=== PATIENT | female | born 1980 ===

== ENCOUNTER 2023-03-07 12:43 | Outpatient (AMB) | payer MEDICAID, SELFPAY ==
--- NOTE | 2023-03-07 12:53 | MHC.OFFVIS ---
Intake Intake Visit Reasons: nephrolithiasis Intake Note: NEW Patient presents today to established treatment for Nephrolithiasis: Meds- None Allergies to Antibiotic- No Known Allergies Blood Thinner- None Courtroom Deputy Or Calendar Clerk Required: No Accompanied by: Significant Other Allergies oxycodone [OXYCODONE] Allergy (Mild, Verified 03/07/23 13:08) rash codiene Allergy (Unknown, Uncoded 03/07/23 13:08) Unknown Medication List - Last Reconciled 03/07/23 by Edyta Mena MD ciprofloxacin HCl 500 mg PO BID cranberry extract 425 mg PO BID desogestrel-ethinyl estradiol 0.15-0.03 mg (Isibloom) 1 tab PO DAILY HPI HPI Comments History of Present Illness Details Kirk is a 42 year old female who is here with her for evaluation for right kidney pain. h/o kidney stones. She states she has had pain for about 2 months, she states she gets UTI's frequently, and was treated with abx by her PCP about one month ago. Past Medical history - kidney stones treated by Dr. Salcido --states she had 3 ESWLS in the past. She was last seen about 4 years ago denies any other prior surgeries. Denies hematuria, or dysuria, denies history of nicotine use. UA-- nitrite positive, 3+blood, leuk trace Plan: Renal US urine c/s, empirically start cipro 500 mg bid for 10 day cranberry supplements daily Review of Systems Const All systems reviewed & are unremarkable except as noted in HPI and below Reports no additional complaints Eyes Reports no additional complaints ENT Reports no additional complaints Card Denies dyspnea Resp Denies cough and Denies dyspnea GI Reports no additional complaints Reports no additional complaints Musc Reports no additional complaints Skin/Breast Denies rash and Denies unusual bruising Neuro Reports no additional complaints Psych Reports no additional complaints Endo Reports no additional complaints Kevin/Lymph Reports no additional complaints Aller/Immun Reports no additional complaints Physical Exam Const General: cooperative, healthy appearing and no acute distress Orientation/consciousness: patient oriented x3 HEENT Head: Yes normal to inspection, Yes normocephalic and Yes atraumatic Eyes Conjunctivae: conjunctivae normal Neck Neck: Yes normal visual inspection and Yes trachea midline Chest Chest palpation & inspection: normal inspection of the chest Resp Effort & Inspection: normal respiratory effort Cardio Rate: regular rate GI Inspection: Yes normal to inspection General: Yes CVA tenderness on the right Back/Spine/Pelvis Back: CVA tenderness Skin General skin exam: no rashes or lesions noted Neuro General: patient oriented x3 Extrem General: No edema Psych Appearance: grossly normal Results AMB Urinalysis, Automated UA Leukoctes 15 Brie/uL Last Edit by LOI Devi on 03/07/23 13:11 UA Nitrite Positive Last Edit by OLI Devi on 03/07/23 13:11 UA Urobilinogen 0.2 mg/dL Last Edit by OLI Devi on 03/07/23 13:11 UA Protein 15 mg/dL Last Edit by OLI Devi on 03/07/23 13:11 UA pH 6.0 Last Edit by OLI Devi on 03/07/23 13:11 UA Blood 200 Thomas/uL Last Edit by OLI Devi on 03/07/23 13:11 3+ Sacha Ernandez 03/07/23 13:11 UA Specific [place] 1.030 Last Edit by OLI Devi on 03/07/23 13:11 UA Ketone Negative Last Edit by OLI Devi on 03/07/23 13:11 UA Bilirubin 0 mg/dL Last Edit by OLI Devi on 03/07/23 13:11 UA Glucose 0 mg/dL Last Edit by Sacha Ernandez [place] on 03/07/23 13:11 Assessment & Plan Assessment & Plan (1) Flank pain: Code(s): R10.9 - Unspecified abdominal pain (2) History of kidney stones: Code(s): Z87.442 - Personal history of urinary calculi Plan Plan: Renal US urine c/s, empirically start cipro 500 mg bid for 10 day cranberry supplements daily Orders: Orders AMB Urinalysis Automated Today Z13.9 - Encounter for screening, unspecified US retroperitoneal comp Today R10.9 - Unspecified abdominal pain, Z87.442 - Personal history of urinary calculi Medications: New ciprofloxacin HCl 500 mg PO BID 20 tabs 0RF cranberry extract administer with meals 425 mg PO BID 60 caps 5RF Patient Instructions: The patient had an opportunity to ask questions regarding treatment plan. All questions were answered. Laboratory studies and physical exam results were discussed and reviewed in detail. No major barriers to understanding were identified. The patient expressed understanding and agreement with the above treatment plan. The patient is aware they should contact our office by phone for worsening of their current condition or the appearance of new symptoms. Compliance is encouraged with any medications and followup testing that is ordered. It is a privilege to be allowed the opportunity to participate in the urologic care of your patient. If you have any questions or concerns regarding treatment for the above conditions please do not hesitate to contact me. The office telephone contact is [phone]. This note is constructed in part using voice recognition software. While every effort has been made to ensure accuracy truckload checker errors may have been included. Yours sincerely, Edyta Mena MD Coding Level of Care Code New Pt Level 4 (45743) Diagnoses Flank pain R10.9 History of kidney stones Z87.442
== END 2023-03-07 13:28 | disposition home or self-care (01) ==
PROVIDERS: PCP Internal Medicine; Referring Provider Internal Medicine; Visit Provider Urology
DX: R10.9 Unspecified abdominal pain (principal); Z87.442 Personal history of urinary calculi; Z13.9 Encounter for screening, unspecified
CPT/HCPCS: 99204

== ENCOUNTER 2023-03-07 12:43 | Outpatient (REF) | payer MEDICAID, SELFPAY | END 2023-03-07 12:44 | disposition home or self-care (01) | LOC: HO.LAB 12:43 | PROVIDERS: PCP Internal Medicine; Visit Provider Urology | DX: N39.0 Urinary tract infection, site not specified (principal); N20.0 Calculus of kidney; R10.9 Unspecified abdominal pain; Z87.442 Personal history of urinary calculi; Z79.899 Other long term (current) drug therapy | CPT/HCPCS: 81003; 87086; 99202 ==

== ENCOUNTER 2023-04-03 12:58 | Outpatient (REF) | payer MEDICAID, SELFPAY ==
--- NOTE | ~2023-04-03 | US_ITS ---
EXAMINATION: US RETROPERITONEAL COMPLETE (RENAL) CLINICAL INFORMATION: Unspecified abdominal pain. COMPARISON: Renal ultrasound 03/30/2018 and 10/23/2017 TECHNIQUE: Real-time imaging of the kidneys and bladder. FINDINGS: RIGHT KIDNEY: 9.7 x 3.1 x 4.7 cm (SAG x AP x TRV). The kidney is normal in size, contour, and echogenicity. Renal cortical thickness is normal. No calculi or focal parenchymal lesions. No hydronephrosis. LEFT KIDNEY: 10.5 x 4.2 x 5.0 cm (SAG x AP x TRV). The kidney is normal in size, contour, and echogenicity. Renal cortical thickness is normal. No calculi or focal parenchymal lesions. No hydronephrosis. BLADDER: Well distended and normal. Bilateral ureteral jets are demonstrated. Prevoid bladder volume is 125 mL. Postvoid bladder volume is 2.0 mL. US/US retroperitoneal comp IMPRESSION: Normal renal and bladder ultrasound.
== END 2023-04-03 12:59 | disposition home or self-care (01) ==
LOC: HO.US 12:58
PROVIDERS: PCP Internal Medicine; Visit Provider Urology
DX: R10.9 Unspecified abdominal pain (principal); Z87.442 Personal history of urinary calculi
CPT/HCPCS: 76770

== ENCOUNTER 2023-04-11 14:07 | Outpatient (REF) | payer MEDICAID, SELFPAY ==
[2023-04-11 16:57] LABS: Urine Cytology See Pathology rpt
== END 2023-04-11 14:08 | disposition home or self-care (01) ==
LOC: HO.LAB 14:07
PROVIDERS: PCP Internal Medicine; Visit Provider Urology
DX: R10.9 Unspecified abdominal pain (principal); N39.0 Urinary tract infection, site not specified; R31.9 Hematuria, unspecified; Z87.442 Personal history of urinary calculi; Z87.448 Personal history of other diseases of urinary system
CPT/HCPCS: 81003; 87086; 88112; 99212

== ENCOUNTER 2023-04-11 14:07 | Outpatient (AMB) | payer MEDICAID, SELFPAY ==
--- NOTE | 2023-04-11 14:50 | A.OFFVIS_ITS ---
Intake Intake Visit Reasons: 1m/US Intake Note: Patient presents today for a follow-up for Nephrolithiasis US Results: Meds- None Allergies to Antibiotic- No Known Allergies Blood Thinner- None Manager Of Construction Required: No Accompanied by: Significant Other Allergies oxycodone [OXYCODONE] Allergy (Mild, Verified 04/11/23 14:51) rash codiene Allergy (Unknown, Uncoded 04/11/23 14:51) Unknown HPI HPI Comments History of Present Illness Details Kirk is a 42 year old female who is here with her for evaluation for right kidney pain. h/o kidney stones. She was initially evaluated 03/07/2023 with complaints of kidney pain for about 2 months, and she stated she gets UTI's frequently. Urinalysis on 03/07/2023, was nitrite positive; she was empirically treated with a 10 day course of Cipro. Urine culture came back mixed bacteria. Past Medical history - kidney stones treated by Dr. Salcido --states she had 3 ESWLS in the past. She was last seen about 4 years ago denies any other prior surgeries. 04/11/2023--she states that for the last f ew days she has been having dysuria and thinks she has another UTI. The right flank pain has not improved. Patient is using again a cranberry juice but did not get the cranberry supplements. UA-- 1+blood, leuk trace I have reviewed 04/03/23--renal ultrasound results which are within normal limits no stones visualized. Plan: Repeat course of cipro 500 mg bid for 5 days. cranberry extract prescribed Further evaluation with CT imaging Urine for cytology and repeat urine culture Nitrofurantoin 50 mg antibiotic prophylaxis to use after sexual activity Review of Systems Const All systems reviewed & are unremarkable except as noted in HPI and below Reports no additional complaints Eyes Reports no additional complaints ENT Reports no additional complaints Card Denies dyspnea Resp Denies cough and Denies dyspnea GI Reports no additional complaints Reports no additional complaints Musc Reports no additional complaints Skin/Breast Denies rash and Denies unusual bruising Neuro Reports no additional complaints Psych Reports no additional complaints Endo Reports no additional complaints Kevin/Lymph Reports no additional complaints Aller/Immun Reports no additional complaints Results AMB Urinalysis, Automated UA Leukoctes 15 Brie/uL Last Edit by OLI Devi on 04/11/23 14:52 UA Nitrite Negative Last Edit by OLI Devi on 04/11/23 14:52 UA Urobilinogen 0.2 mg/dL Last Edit by Sacha Ernandez [place] on 04/11/23 14:5 2 UA Protein 15 mg/dL Last Edit by Sacha Ernandez [place] on 04/11/23 14:52 UA pH 6.0 Last Edit by Sacha Ernandez [place] on 04/11/23 14:52 UA Blood 25 Thomas/uL Last Edit by Scaha Ernandez [place] on 04/11/23 14:52 1+ Sacha Ernandez 04/11/23 14:52 UA Specific [place] 1.020 Last Edit by Sacha Ernandez [place] on 04/11/23 14: 52 UA Ketone Negative Last Edit by OLI Devi on 04/11/23 14:52 UA Bilirubin 0 mg/dL Last Edit by Sacha Ernandez [place] on 04/11/23 14:52 UA Glucose 0 mg/dL Last Edit by Sacha Ernandez [place] on 04/11/23 14:52 Results Reviewed Results Reviewed: Laboratory Last Values Urine pH (Auto) 6.0 04/11/23 14:51 Specific [place] (Auto) 1.020 04/11/23 14:51 Urine Protein (Auto) 15 mg/dL 04/11/23 14:51 Glucose (UA)(Auto) 0 mg/dL 04/11/23 14:51 Urine Ketones (Auto) Negative 04/11/23 14:51 Urine Blood (Auto) 25 Thomas/uL 04/11/23 14:51 Urine Nitrite (Auto) Negative 04/11/23 14:51 Urine Bilirubin (Auto) 0 mg/dL 04/11/23 14:51 Urine Urobilinogen (Auto) 0.2 mg/dL 04/11/23 14:51 Leukocyte Esterase (Auto) 15 Brie/uL 04/11/23 14:51 Date of Service: 04/03/23 EXAMINATION: US RETROPERITONEAL COMPLETE (RENAL) CLINICAL INFORMATION: Unspecified abdominal pain. COMPARISON: Renal ultrasound 03/30/2018 and 10/23/2017 TECHNIQUE: Real-time imaging of the kidneys and bladder. FINDINGS: RIGHT KIDNEY: 9.7 x 3.1 x 4.7 cm (SAG x AP x TRV). The kidney is normal in size, contour, and echogenicity. Renal cortical thickness is normal. No calculi or focal parenchymal lesions. No hydronephrosis. LEFT KIDNEY: 10.5 x 4.2 x 5.0 cm (SAG x AP x TRV). The kidney is normal in size, contour, and echogenicity. Renal cortical thickness is normal. No calculi or focal parenchymal lesions. No hydronephrosis. BLADDER: Well distended and normal. Bilateral ureteral jets are demonstrated. Prevoid bladder volume is 125 mL. Postvoid bladder volume is 2.0 mL. IMPRESSION: Normal renal and bladder ultrasound. Collected: 03/07/23 Status: COMP Req#: [id number] Received: 03/07/23 Source: [facility] Sp Desc: Urine dutton Subm Dr: Edyta Mena MD Ordered: Urine Culture Procedure Result Verified Urine Culture Final 03/09/23 Report Result 50,000 to 100,000 cfu/ml Mixed bacterial connor characteristic of urogenital contamination. Assessment & Plan Assessment & Plan (1) H/O pyelonephritis: Code(s): Z87.448 - Personal history of other diseases of urinary system (2) Right flank pain: Code(s): R10.9 - Unspecified abdominal pain (3) History of renal calculi: Code(s): Z87.442 - Personal history of urinary calculi (4) Hematuria: Code(s): R31.9 - Hematuria, unspecified (5) Recurrent UTI: Code(s): N39.0 - Urinary tract infection, site not specified Plan Repeat course of cipro 500 mg bid for 5 days. cranberry extract prescribed Further evaluation with CT imaging Urine for cytology and repeat urine culture Nitrofurantoin 50 mg antibiotic prophylaxis to use after sexual activity Orders: Orders AMB Urinalysis Automated Today Z13.9 - Encounter for screening, unspecified Blood Urea Nitrogen Today N39.0 - Urinary tract infection, site not specified, Z87.448 - Personal history of other diseases of urinary system CT abdomen pelvis wo/w IV con Today N39.0 - Urinary tract infection, site not specified, R10.9 - Unspecified abdominal pain, R31.9 - Hematuria, unspecified, Z87.442 - Personal history of urinary calculi, Z87.448 - Personal history of other diseases of urinary system Creatinine Today N39.0 - Urinary tract infection, site not specified, Z87.448 - Personal history of other diseases of urinary system Medications: New nitrofurantoin macrocrystal 50 mg orally use after sexual activity; administer with a meal/food 30 caps 1RF Refilled ciprofloxacin HCl 500 mg PO BID 10 tabs 0RF cranberry extract administer with meals 425 mg PO BID 60 caps 5RF Patient Instructions: The patient had an opportunity to ask questions regarding treatment plan. All questions were answered. Imaging, Laboratory studies and physical exam results were discussed and reviewed in detail. No major barriers to understanding were identified. The patient expressed understanding and agreement with the above treatment plan. The patient is aware they should contact our office by phone for worsening of their current condition or the appearance of new symptoms. Compliance is encouraged with any medications and followup testing that is ordered. It is a privilege to be allowed the opportunity to participate in the urologic care of your patient. If you have any questions or concerns regarding treatment for the above conditions please do not hesitate to contact me. The office telephone contact is [phone]. This note is constructed in part using voice recognition software. While every effort has been made to ensure accuracy cdl instructor errors may have been included. Yours sincerely, Edyta Mena MD Coding Level of Care Code Est Pt Level 4 (15296) Diagnoses H/O pyelonephritis Z87.448 Right flank pain R10.9 History of renal calculi Z87.442 Hematuria R31.9 Recurrent UTI N39.0
== END 2023-04-11 15:51 | disposition home or self-care (01) ==
PROVIDERS: PCP Internal Medicine; Visit Provider Urology
DX: Z87.448 Personal history of other diseases of urinary system (principal); R10.9 Unspecified abdominal pain; Z87.442 Personal history of urinary calculi; R31.9 Hematuria, unspecified; N39.0 Urinary tract infection, site not specified; Z13.9 Encounter for screening, unspecified
CPT/HCPCS: 99214

== ENCOUNTER 2023-06-14 09:12 | Outpatient (AMB) | payer MEDICAID, SELFPAY ==
--- NOTE | 2023-06-14 09:40 | MHC.OFFVIS ---
Intake Visit Reasons: possible cysto/CT/labs Intake Note: Patient presents today for a CYSTOSCOPY Procedure: Patient declined Cysto Meds: Nitro, Cipro & Cranberry Allergies to Antibiotic: No Known Allergies Blood Thinner: None Center Hole Reamer Required: No Accompanied by: Self / Same As Patient Allergies oxycodone [OXYCODONE] Allergy (Mild, Verified 06/14/23 09:42) rash codiene Allergy (Unknown, Uncoded 06/14/23 09:42) Unknown HPI Comments Details: 06/14/23--Kirk is a 42 year old female who is here with her for evaluation for right kidney pain. h/o kidney stones. She was initially evaluated 03/07/2023 with complaints of kidney pain for about 2 months, and she stated she gets UTI's frequently. Past Medical history - kidney stones treated by Dr. Salcido --states she had 3 ESWLS in the past. She was last seen about 4 years ago denies any other prior surgeries. Urine cytology sent on 04/11/23 was negative for malignant cells. Reviewed CT Abd/pelvis wo IV contrast, no calcifications reported. I discussed findings with patient and her . 04/11/2023--she states that for the last few days she has been having dysuria and thinks she has another UTI. The right flank pain has not improved. Patient is using again a cranberry juice but did not get the cranberry supplements. Discussed repeat course of cipro 500 mg bid for 5 days. cranberry extract prescribed. Further evaluation with CT imaging. Urine for cytology and repeat urine culture. Nitrofurantoin 50 mg antibiotic prophylaxis to use after sexual activity UA-- 1+blood, leuk trace I have reviewed 04/03/23--renal ultrasound results which are within normal limits no stones visualized. Urinalysis on 03/07/2023, was nitrite positive; she was empirically treated with a 10 day course of Cipro. Urine culture came back mixed bacteria. Review of Systems Const All systems reviewed & are unremarkable except as noted in HPI and below Reports no additional complaints Eyes Reports no additional complaints ENT Reports no additional complaints Card Reports no additional complaints Resp Reports no additional complaints GI Reports no additional complaints Reports as per HPI Musc Reports no additional complaints Skin/Breast Reports system reviewed and no additional complaints, except as documented Neuro Reports no additional complaints Psych Reports no additional complaints Endo Reports no additional complaints Kevin/Lymph Reports no additional complaints Aller/Immun Reports no additional complaints Results AMB Urinalysis, Automated UA Leukoctes 15 Brie/uL Last Edit by OLI Devi on 06/14/23 10:20 UA Nitrite Negative Last Edit by Sacha Ernandez [facility] on 06/14/23 10:20 UA Urobilinogen 0.2 mg/dL Last Edit by Sacha Ernandez [place] on 06/14/23 10:20 UA Protein 30 mg/dL Last Edit by Sacha Ernandez [facility] on 06/14/23 10:20 1+ Sacha Ernandez 06/14/23 10:20 UA pH 5.5 Last Edit by Sacha Ernandez [place] on 06/14/23 10:20 UA Blood 200 Thomas/uL Last Edit by Sacha Ernandez [facility] on 06/14/23 10:20 3+ Sacha Ernandez 06/14/23 10:20 UA Specific [place] 1.025 Last Edit by Sacha Ernandez [place] on 06/14/23 10:20 UA Ketone Negative Last Edit by Sacha Ernnadez [facility] on 06/14/23 10:20 UA Bilirubin 0 mg/dL Last Edit by Sacha Ernandez [facility] on 06/14/23 10:20 UA Glucose 0 mg/dL Last Edit by Sacha Ernandez [facility] on 06/14/23 10:20 Results Reviewed Results Reviewed: Laboratory Last Values Urine pH (Auto) 5.5 06/14/23 10:19 Specific [place] (Auto) 1.025 06/14/23 10:19 Urine Protein (Auto) 30 mg/dL 06/14/23 10:19 Glucose (UA)(Auto) 0 mg/dL 06/14/23 10:19 Urine Ketones (Auto) Negative 06/14/23 10:19 Urine Blood (Auto) 200 Thomas/uL 06/14/23 10:19 Urine Nitrite (Auto) Negative 06/14/23 10:19 Urine Bilirubin (Auto) 0 mg/dL 06/14/23 10:19 Urine Urobilinogen (Auto) 0.2 mg/dL 06/14/23 10:19 Leukocyte Esterase (Auto) 15 Brie/uL 06/14/23 10:19 Collected: 04/11/23 Location: .LAB Received: 04/13/23 Diagnosis Urine: Negative for high-grade urothelial carcinoma. COMMENT: Examination of a monolayer preparation slide shows many benign squamous cells, occasional benign urothelial cells, and occasional inflammatory cells and red blood cells. Clinical History Hematuria Material Received Urine Gross Description 7 cc cloudy yellow fluid Date of Service: 04/03/23 EXAMINATION: US RETROPERITONEAL COMPLETE (RENAL) CLINICAL INFORMATION: Unspecified abdominal pain. COMPARISON: Renal ultrasound 03/30/2018 and 10/23/2017 TECHNIQUE: Real-time imaging of the kidneys and bladder. FINDINGS: RIGHT KIDNEY: 9.7 x 3.1 x 4.7 cm (SAG x AP x TRV). The kidney is normal in size, contour, and echogenicity. Renal cortical thickness is normal. No calculi or focal parenchymal lesions. No hydronephrosis. LEFT KIDNEY: 10.5 x 4.2 x 5.0 cm (SAG x AP x TRV). The kidney is normal in size, contour, and echogenicity. Renal cortical thickness is normal. No calculi or focal parenchymal lesions. No hydronephrosis. BLADDER: Well distended and normal. Bilateral ureteral jets are demonstrated. Prevoid bladder volume is 125 mL. Postvoid bladder volume is 2.0 mL. IMPRESSION: Normal renal and bladder ultrasound. Collected: 03/07/23-1243 Status: COMP Req#: [id number] Received: 03/07/23-193 Source: [facility] Sp Desc: Urine dutton Subm Dr: Edyta Mena MD Ordered: Urine Culture Procedure Result Verified Urine Culture Final 03/09/2309 Report Result 50,000 to 100,000 cfu/ml Mixed bacterial connor characteristic of urogenital contamination. Assessment & Plan Assessment & Plan (1) H/O pyelonephritis: Code(s): Z87.448 - Personal history of other diseases of urinary system Category: Medical (2) Right flank pain: Code(s): R10.9 - Unspecified abdominal pain Category: Medical (3) History of renal calculi: Code(s): Z87.442 - Personal history of urinary calculi Category: Medical (4) Hematuria: Code(s): R31.9 - Hematuria, unspecified Category: Medical (5) Recurrent UTI: Code(s): N39.0 - Urinary tract infection, site not specified Category: Medical Plan cranberry supplements Nitrofurantoin 50 mg antibiotic prophylaxis to use after sexual activity. Consider cysto on fu pending continued irritative voiding symptoms. Orders: Orders AMB Urinalysis Automated 06/14/23 Z13.9 - Encounter for screening, unspecified Patient Instructions: The patient had an opportunity to ask questions regarding treatment plan. The patient expressed understanding and agreement with the above treatment plan. The patient is aware they should contact our office by phone for worsening of their current condition or the appearance of new symptoms. Compliance is encouraged with any medications and followup testing that is ordered. It is a privilege to be allowed the opportunity to participate in the urologic care of your patient. If you have any questions or concerns regarding treatment for the above conditions please do not hesitate to contact me. The office telephone contact is [phone]. This note is constructed in part using voice recognition software. While every effort has been made to ensure accuracy talent development manager errors may have been included. Yours sincerely, Edyta Mena MD Coding Level of Care Code Est Pt Level 4 (65911) Diagnoses H/O pyelonephritis Z87.448 Right flank pain R10.9 History of renal calculi Z87.442 Hematuria R31.9 Recurrent UTI N39.0
== END 2023-06-14 10:17 | disposition home or self-care (01) ==
PROVIDERS: PCP Internal Medicine; Visit Provider Urology
DX: Z87.448 Personal history of other diseases of urinary system (principal); R10.9 Unspecified abdominal pain; Z87.442 Personal history of urinary calculi; R31.9 Hematuria, unspecified; N39.0 Urinary tract infection, site not specified
CPT/HCPCS: 99214

== ENCOUNTER → 2023-06-14 09:12 | Outpatient (BNVA) | payer MEDICAID, SELFPAY | PROVIDERS: PCP Internal Medicine; Visit Provider Urology | DX: R31.9 Hematuria, unspecified (principal); N39.0 Urinary tract infection, site not specified; R10.9 Unspecified abdominal pain; Z87.448 Personal history of other diseases of urinary system; Z87.442 Personal history of urinary calculi | CPT/HCPCS: 81003; 99212 ==

== ENCOUNTER 2023-10-24 13:15 | Outpatient (AMB) | payer MEDICAID, SELFPAY ==
--- NOTE | 2023-10-24 13:26 | A.OFFVIS_ITS ---
Intake Visit Reasons: possible cysto/follow up Intake Note: Pt presents to the office today for a follow up/ cysto. Cystoscope: LOT:[id number] EXP:04/19/26 Allergies oxycodone [OXYCODONE] Allergy (Mild, Verified 10/24/23 13:37) rash codiene Allergy (Unknown, Uncoded 10/24/23 13:37) Unknown Medication List - Last Reconciled 10/24/23 by Edyta Mena MD solifenacin (Vesicare) 10 mg PO BEDTIME HPI Comments Details: 10/24/23--Margaret is a 42 year old female who is followed for history of kidney stones and persistent microscopic hematuria. She is here for follow-up and cystoscopy. She denies dysuria. She complains of urinary frequency especially at nighttime. Will trial VESIcare 10 mg at bedtime. Cystoscopy findings: prominent vasculature, mild trabeculations, no suspicious bladder lesions visualized. Continue to monitor kidneys. Renal ultrasound in 10 months. Review of chart: 06/14/23--Kirk is a 42 year old female who is here with her for evaluation for right kidney pain. h/o kidney stones. She was initially evaluated 03/07/2023 with complaints of kidney pain for about 2 months, and she stated she gets UTI's frequently. Past Medical history - kidney stones treated by Dr. Salcido --states she had 3 ESWLS in the past. She was last seen about 4 years ago denies any other prior surgeries. Urine cytology sent on 04/11/23 was negative for malignant cells. Reviewed CT Abd/pelvis wo IV contrast, no calcifications reported. I discussed findings with patient and her . 04/11/2023--she states that for the last few days she has been having dysuria and thinks she has another UTI. The right flank pain has not improved. Patient is using again a cranberry juice but did not get the cranberry supplements. Disc ussed repeat course of cipro 500 mg bid for 5 days. cranberry extract prescribed. Further evaluation with CT imaging. Urine for cytology and repeat urine culture. Nitrofurantoin 50 mg antibiotic prophylaxis to use after sexual activity UA-- 1+blood, leuk trace I have reviewed 04/03/23--renal ultrasound results which are within normal limits no stones visualized. Urinalysis on 03/07/2023, was nitrite positive; she was empirically treated with a 10 day course of Cipro. Urine culture came back mixed bacteria. Review of Systems Const All systems reviewed & are unremarkable except as noted in HPI and below Reports no additional complaints Eyes Reports no additional complaints ENT Reports no additional complaints Card Reports no additional complaints Resp Reports no additional complaints GI Reports no additional complaints Reports as per HPI Musc Reports no additional complaints Skin/Breast Reports system reviewed and no additional complaints, except as documented Neuro Reports no additional complaints Psych Reports no additional complaints Endo Reports no additional complaints Kevin/Lymph Reports no additional complaints Aller/Immun Reports no additional complaints Office Procedures Cystoscopy Consent Discussed risk and benefit or proposed procedure with the patient. Information consent for procedure given to the patient. Discussed technical aspects, risks, benefits and alternatives in full. Addressed all of the patient's questions and concerns regarding the procedure. The patient demonstrated knowledge and understanding. They wish to proceed with this procedure. Preparation The patient was prepped in the usual manner. A gold cutter was present and in the room. Genitalia was prepped with betadine solution in a sterile manner. Lidocaine Jelly 2% was placed into the urethra and 16Fr flexible Olympus cystoscope was inserted into the meatus after adequate lubrication. Procedure Time out per protocol performed. Bladder Inspection Bladder Inspection: The bladder was inspected in its entirety with utilization retroflexion displaying: Tumor(s): no suspicious bladder lesions visualized Trabeculation: mild Mucosal Erthema: mild Orifices: normal shape and position Urethra: normal Cystoscopy findings: prominent vasculature, mild trabeculations, no suspicious bladder lesions visualized [id number] DISPOSABLE SCOPE URO-G FLEXIBLE SCOPE Procedure code (CPT) selection complete Office Meds lidocaine HCl 2 % mucosal jelly in applicator Performing Provider: Edyta Mena MD Performing Location[facility] [place] [facility] Administered by: Isac Nicole LPN on 10/24/23 14:30 Dose Route Admin Location Dispensed Lot Number Expiration Date [facility] Health Insurance Agent 10 mL intra-urethral 10 mL naproxen 500 mg tablet Performing Provider: Edyta Mena MD Performing Location: [facility] [place] [facility] Administered by: Isac Nicole LPN on 10/24/23 14:30 Dose Route Admin Location Dispensed Lot Number Expiration Date [facility] Health Insurance Agent 500 mg PO 1 tab ciprofloxacin HCl 500 mg tablet Performing Provider: Edyta Mena MD Performing Location: [facility] [place] [facility] Administered by: Isac Nicole LPN on 10/24/23 14:30 Dose Route Admin Location Dispensed Lot Number Expiration Date [facility] Health Insurance Agent 500 mg PO 1 tab Results AMB Urinalysis, Automated UA Leukoctes 500 Brie/uL Last Edit by Anjana Potts CMA on 10/24/23 13:39 UA Nitrite Negative Last Edit by Anjana Potts CMA on 10/24/23 13:39 UA Urobilinogen 0.2 mg/dL Last Edit by Anjana Potts CMA on 10/24/23 13:39 UA Protein 15 mg/dL Last Edit by Anjana Potts CMA on 10/24/23 13:39 UA pH 6.0 Last Edit by Anjana Potts CMA on 10/24/23 13:39 UA Blood 80 Thomas/uL Last Edit by Anjana Potts CMA on 10/24/23 13:39 UA Specific [place] 1.020 Last Edit by Anjana Potts CMA on 10/24/23 13:39 UA Ketone Negative Last Edit by Anjana Potts CMA on 10/24/23 13:39 UA Bilirubin 0 mg/dL Last Edit by Anjana Potts CMA on 10/24/23 13:39 UA Glucose 0 mg/dL Last Edit by Anjana Potts CMA on 10/24/23 13:39 Results Reviewed Results Reviewed: Laboratory Last Values Urine pH (Auto) 6.0 10/24/23 13:37 Specific [place] (Auto) 1.020 10/24/23 13:37 Urine Protein (Auto) 15 mg/dL 10/24/23 13:37 Glucose (UA)(Auto) 0 mg/dL 10/24/23 13:37 Urine Ketones (Auto) Negative 10/24/23 13:37 Urine Blood (Auto) 80 Thomas/uL 10/24/23 13:37 Urine Nitrite (Auto) Negative 10/24/23 13:37 Urine Bilirubin (Auto) 0 mg/dL 10/24/23 13:37 Urine Urobilinogen (Auto) 0.2 mg/dL 10/24/23 13:37 Leukocyte Esterase (Auto) 500 Brie/uL 10/24/23 13:37 Collected: 02/07/24 Location: [facility] Received: 04/13/23 Diagnosis Urine: Negative for high-grade urothelial carcinoma. COMMENT: Examination of a monolayer preparation slide shows many benign squamous cells, occasional benign urothelial cells, and occasional inflammatory cells and red blood cells. Clinical History Hematuria Material Received Urine Gross Description 7 cc cloudy yellow fluid Date of Service: 04/03/23 EXAMINATION: US RETROPERITONEAL COMPLETE (RENAL) CLINICAL INFORMATION: Unspecified abdominal pain. COMPARISON: Renal ultrasound 03/30/2018 and 10/23/2017 TECHNIQUE: Real-time imaging of the kidneys and bladder. FINDINGS: RIGHT KIDNEY: 9.7 x 3.1 x 4.7 cm (SAG x AP x TRV). The kidney is normal in size, contour, and echogenicity. Renal cortical thickness is normal. No calculi or focal parenchymal lesions. No hydronephrosis. LEFT KIDNEY: 10.5 x 4.2 x 5.0 cm (SAG x AP x TRV). The kidney is normal in size, contour, and echogenicity. Renal cortical thickness is normal. No calculi or focal parenchymal lesions. No hydronephrosis. BLADDER: Well distended and normal. Bilateral ureteral jets are demonstrated. Prevoid bladder volume is 125 mL. Postvoid bladder volume is 2.0 mL. IMPRESSION: Normal renal and bladder ultrasound. Collected: 03/07/23 Status: COMP Req#: [id number] Received: 03/07/23 Source: [facility] Sp Desc: Urine dutton Subm Dr: Edyta Mena MD Ordered: Urine Culture Procedure Result Verified Urine Culture Final 03/09/23 Report Result 50,000 to 100,000 cfu/ml Mixed bacterial connor characteristic of urogenital contamination. Assessment & Plan Assessment & Plan (1) H/O pyelonephritis: Code(s): Z87.448 - Personal history of other diseases of urinary system Category: Medical (2) History of renal calculi: Code(s): Z87.442 - Personal history of urinary calculi Category: Medical (3) Hematuria: Code(s): R31.9 - Hematuria, unspecified Category: Medical (4) Recurrent UTI: Code(s): N39.0 - Urinary tract infection, site not specified Category: Medical Plan history of kidney stones and persistent microscopic hematuria. She is here for follow-up and cystoscopy. She denies dysuria. She complains of urinary frequency especially at nighttime. Will trial VESIcare 10 mg at bedtime. Cystoscopy findings: prominent vasculature, mild trabeculations, no suspicious bladder lesions visualized. Continue to monitor kidneys. Renal ultrasound in 10 months. Orders: Orders AMB Urinalysis Automated Today R31.9 - Hematuria, unspecified AMB Cystoscopy Today N39.0 - Urinary tract infection, site not specified, R10.9 - Unspecified abdominal pain, R31.9 - Hematuria, unspecified, Z87.442 - Personal history of urinary calculi, Z87.448 - Personal history of other diseases of urinary system Medications: New solifenacin (Vesicare) 10 mg PO BEDTIME 30 tabs 3RF Patient Instructions: The patient had an opportunity to ask questions regarding treatment plan. The patient expressed understanding and agreement with the above treatment plan. The patient is aware they should contact our office by phone for worsening of their current condition or the appearance of new symptoms. Compliance is encouraged with any medications and followup testing that is ordered. It is a privilege to be allowed the opportunity to participate in the urologic care of your patient. If you have any questions or concerns regarding treatment for the above conditions please do not hesitate to contact me. The office telephone contact is [phone]. This note is constructed in part using voice recognition software. While every effort has been made to ensure accuracy estimator lumber errors may have been included. Yours sincerely, Edyta Mena MD Coding Level of Care Code Est Pt Level 3 (16769) Diagnoses H/O pyelonephritis Z87.448 History of renal calculi Z87.442 Hematuria R31.9 Recurrent UTI N39.0 CPT Codes Cystoscopy - CPT: [id number] ([id number])
== END 2023-10-24 15:08 | disposition home or self-care (01) ==
PROVIDERS: PCP Internal Medicine; Referring Provider Internal Medicine; Visit Provider Urology
DX: R35.0 Frequency of micturition (principal); R31.9 Hematuria, unspecified; Z87.442 Personal history of urinary calculi; Z87.448 Personal history of other diseases of urinary system
CPT/HCPCS: 52000; 99213

== ENCOUNTER → 2023-10-24 13:15 | Outpatient (BNVA) | payer MEDICAID, SELFPAY | PROVIDERS: PCP Internal Medicine; Visit Provider Urology | DX: R31.29 Other microscopic hematuria (principal); Z87.442 Personal history of urinary calculi; Z87.448 Personal history of other diseases of urinary system | CPT/HCPCS: 52000; 81003; 99212 ==